=== PATIENT | female | born 1955 | race Two or more races ===

== ENCOUNTER → 2019-07-30 | Emergency (ER) | payer OTHER ==
[~2019-07-30] VITALS: Ht 170.2 cm; Wt 66.2 kg
[~2019-07-30] MED LIST: VISTARIL50 MG PO; [UNRECOGNIZED DRUG - OTHER]
== END | disposition home or self-care (01) ==
LOC: ER 02:13
DX: F12.980 Cannabis use, unspecified with anxiety disorder (principal); R42 Dizziness and giddiness

== ENCOUNTER 2019-07-31 03:01 | Emergency (ER) | payer OTHER ==
[~2019-07-31] VITALS: Ht 170.2 cm; Wt 66.2 kg
[~2019-07-31 03:01] MED LIST changes: -VISTARIL50 MG PO
[2019-07-31] MEDS ORDERED: VISTARIL50 MG PO (06:05)
== END 2019-07-31 06:17 ==
LOC: ER 03:01
DX: F41.8 Other specified anxiety disorders (principal); R42 Dizziness and giddiness

== ENCOUNTER → 2020-09-17 | Outpatient (CLI) | payer OTHER ==
[~2020-09-17] MED LIST changes: +VISTARIL50 MG PO
== END | disposition home or self-care (01) ==
LOC: NUCLEAR 13:49
DX: M81.0 Age-related osteoporosis without current pathological fracture (principal)

== ENCOUNTER 2020-09-25 13:06 | Outpatient (CLI) | payer OTHER | END 2020-09-25 13:18 | disposition home or self-care (01) | LOC: RAD 13:06 | DX: M25.812 Other specified joint disorders, left shoulder (principal); M99.01 Segmental and somatic dysfunction of cervical region; M99.02 Segmental and somatic dysfunction of thoracic region; M99.03 Segmental and somatic dysfunction of lumbar region; M25.511 Pain in right shoulder; M25.512 Pain in left shoulder; M99.04 Segmental and somatic dysfunction of sacral region; M99.05 Segmental and somatic dysfunction of pelvic region ==

== ENCOUNTER 2021-11-03 15:03 | Outpatient (CLI) | payer OTHER | END 2021-11-03 15:11 | disposition home or self-care (01) | LOC: RAD 15:03 | PROVIDERS: ATTEND Internal Medicine | DX: M25.812 Other specified joint disorders, left shoulder (principal); M25.512 Pain in left shoulder ==

== ENCOUNTER 2022-01-05 14:52 | Outpatient (CLI) | payer OTHER | END 2022-01-05 14:58 | disposition home or self-care (01) | LOC: RAD 14:52 | DX: M54.2 Cervicalgia (principal) ==

== ENCOUNTER 2023-03-31 13:21 | Outpatient (CLI) | payer OTHER | END 2023-03-31 13:23 | disposition home or self-care (01) | LOC: NUCLEAR 13:21 | PROVIDERS: ATTEND Specialist | DX: M81.0 Age-related osteoporosis without current pathological fracture (principal) ==

== ENCOUNTER 2024-01-05 12:42 | Outpatient (CLI) | payer OTHER | END 2024-01-05 12:46 | disposition home or self-care (01) | LOC: RAD 12:42 | PROVIDERS: ATTEND Internal Medicine | DX: R07.82 Intercostal pain (principal); R07.81 Pleurodynia ==

== ENCOUNTER 2024-08-09 13:46 | Outpatient (CLI) | payer OTHER | END 2024-08-09 13:53 | disposition home or self-care (01) | LOC: SONOGRAMA 13:46 | DX: R60.9 Edema, unspecified (principal) ==

== ENCOUNTER 2024-09-18 16:21 | Outpatient (CLI) | payer OTHER | END 2024-09-18 16:27 | disposition home or self-care (01) | LOC: RAD 16:21 | DX: J20.9 Acute bronchitis, unspecified (principal) ==

== ENCOUNTER 2024-09-30 08:38 | Outpatient (CLI) | payer OTHER | END 2024-09-30 08:40 | disposition home or self-care (01) | LOC: SONOGRAMA 08:38 | PROVIDERS: ATTEND Plastic Surgery | DX: L76.34 Postprocedural seroma of skin and subcutaneous tissue following other procedure (principal) ==